=== PATIENT | female | born 1935 | race Caucasian/White ===

== ENCOUNTER 2017-09-04 13:03 | Inpatient (IN) | payer OTHER ==
[~2017-09-04] VITALS: Ht 160 cm; Wt 75.2 kg
[~2017-09-04 13:03] MED LIST: FELO10TA PO; GAB400C PO; GLIP-115 PO; LEV500T PO; LEVO25TA6 PO; LIS5T PO; LOVA20TA4 PO; METF-490 PO; NOR10T PO; SOTA80TA PO
[2017-09-04] MEDS ORDERED: HYDROcodone-ACET 10/325MG TAB PO ONE (15:15)
[2017-09-04 15:25] LABS: Basophils # (auto) 0.2 uL; Eosinophils # (auto) 0 uL; Eosinophils % (auto) 0.1 % (0.0-7.0); Hematocrit 27.1 % (36.0-46.0); Hemoglobin 8.8 g/dL (12.2-16.2); Lymphocytes # (auto) 2.3 uL; Lymphocytes % (auto) 12.4 % (10.0-50.0); Mean Corpuscular Hemoglobin 26.4 pg (28.0-32.0); Mean Corpuscular Hgb Conc. 32.5 g/dL (32.0-36.0); Mean Corpuscular Volume 81.5 fL (80.0-100.0); Monocytes # (auto) 1.2 uL; Monocytes % (auto) 6.6 % (0.0-12.0); Neutrophils % (auto) 79.9 % (37.0-80.0); Platelet Count (auto) 319 10^3/uL (140-450); Red Blood Cells 3.32 10^6/uL (4.0-5.20); Red Cell Distribution Width 15.8 % (11.8-14.3); White Blood Cell 18.8 10^3/uL (4.4-10.8)
[2017-09-04 15:26] LABS: Alanine Aminotransferase 15 U/L (13-56); Albumin 3.2 g/dL (3.4-5.0); Alkaline Phosphatase 86 U/L (45-117); Anion Gap 18 (5-15); Aspartate Aminotransferase 9 U/L (15-37); BUN/Creatinine Ratio 55.6; Bilirubin, Total 0.3 mg/dL (0.2-1.0); Blood Urea Nitrogen 65 mg/dL (7-18); Calcium 8.6 mg/dL (8.5-10.1); Carbon Dioxide 17 mmol/L (21-32); Chloride 92 mmol/L (98-107); GFR African American 57 mL/min; GFR Non-African American 47 mL/min; Glucose 202 mg/dL (74-106); Magnesium 1.7 mg/dL (1.6-2.6); Potassium 4.5 mmol/L (3.5-5.1); Sodium 127 mmol/L (136-145); Total Protein 6.6 g/dL (6.4-8.2)
[2017-09-04 16:07] LABS: Urine Bacteria FEW /hpf (None Seen); Urine Blood TRACE /uL (Negative); Urine Mucus FEW (None Seen); Urine Specific Gravity 1.013 (1.001-1.035); Urine WBC 4 /hpf (0 - 5)
[2017-09-04] MEDS ORDERED: cefTRIAXone 1GM/10ml IVPUSH 10 ML IV ONE (16:30)
[2017-09-04] MEDS ORDERED: InsuLIN REG 1unit/0.01ml Soln (100units/ml) SC ONE (16:30)
[2017-09-04] MEDS ORDERED: NALOXONE HCL 0.4 MG/ML VIAL ONE (16:48)
[2017-09-04] MEDS ORDERED: SODIUM CHLORIDE 0.9% 1,000 ML IV SCH ×3 (17:01→23:01)
[2017-09-04] MEDS ORDERED: NALOXONE HCL 0.4 MG/ML VIAL IV ONE (17:15)
[2017-09-04] MEDS ORDERED: SODIUM BICARBONATE 8.4 % INJ 50ML VIAL IV ONE (17:15)
[2017-09-04] MEDS ORDERED: InsuLIN R (HUMAN) 100 UNITS in SODIUM CHL 0.9% 99 ML IV SCH (17:15)
[2017-09-04] MEDS ORDERED: DEXTROSE (50%) 50ML SYRG IV PRN ×2 (17:15→17:45)
[2017-09-04] MEDS ORDERED: PANTOPRAZOLE 80 MG in SODIUM CHL 0.9% 60 ML IV ONE ×2 (17:30→17:45)
[2017-09-04] MEDS ORDERED: ACETAMINOPHEN 325 MG TAB PO PRN (17:45)
[2017-09-04] MEDS ORDERED: ALUM & MAG HYDROX-SIMETH LIQ(MAALOX) 30 ML PO PRN (17:45)
[2017-09-04] MEDS ORDERED: MORPHINE SULFATE 4 MG/ML SYR/VIAL IV PRN (17:45)
[2017-09-04] MEDS ORDERED: NITROGLYCERIN 0.4 MG SL TAB SL PRN (17:45)
[2017-09-04] MEDS ORDERED: LORazepam 0.5 MG TAB PO PRN (17:45)
[2017-09-04] MEDS ORDERED: ONDANSETRON HCL 4 MG/2 ML VIAL IV PRN (17:45)
[2017-09-04 17:47] LABS: Basophils # (auto) 0.1 uL; Basophils % (auto) 0.4 % (0.0-2.0); Eosinophils # (auto) 0 uL; Eosinophils % (auto) 0.1 % (0.0-7.0); Hematocrit 22.9 % (36.0-46.0); Hemoglobin 7.3 g/dL (12.2-16.2); Lymphocytes # (auto) 3.2 uL; Lymphocytes % (auto) 19.4 % (10.0-50.0); Mean Corpuscular Hemoglobin 26.1 pg (28.0-32.0); Mean Corpuscular Hgb Conc. 31.8 g/dL (32.0-36.0); Mean Corpuscular Volume 82.2 fL (80.0-100.0); Monocytes # (auto) 1.4 uL; Monocytes % (auto) 8.7 % (0.0-12.0); Neutrophils # (auto) 11.8 uL; Neutrophils % (auto) 71.4 % (37.0-80.0); Platelet Count (auto) 257 10^3/uL (140-450); Red Blood Cells 2.79 10^6/uL (4.0-5.20); Red Cell Distribution Width 15.7 % (11.8-14.3); White Blood Cell 16.5 10^3/uL (4.4-10.8)
[2017-09-04] MEDS: SODIUM CHLORIDE 0.9% 1,000 ML IV SCH (17:52)
[2017-09-04 18:00] LABS: Magnesium 1.7 mg/dL (1.6-2.6); Phosphorus 3.6 mg/dL (2.5-4.90); Potassium 4.5 mmol/L (3.5-5.1)
[2017-09-04] MEDS ORDERED: ACCU-CHEK COMFORT CURVE STRIP VI SCH (18:00)
[2017-09-04] MEDS ORDERED: NALBUPHINE HCL 10 MG/1ml INJECTION ONE (19:15)
[2017-09-04] MEDS ORDERED: IDARUCIZUMAB 2.5 GM/50 ML VIAL IV ONE ×2 (19:15→19:30)
[2017-09-04] MEDS ORDERED: NALBUPHINE HCL 10 MG/1ml INJECTION IV ONE (19:15)
[2017-09-04] MEDS ORDERED: MIDAZOLAM HCL 1MG/1ML-2 ML VIAL ONE (19:25)
[2017-09-04] MEDS: ACCU-CHEK COMFORT CURVE STRIP VI SCH (19:30)
[2017-09-04] MEDS: InsuLIN REG 1unit/0.01ml Soln (100units/ml) SC SCH (19:34)
[2017-09-04] MEDS ORDERED: MIDAZOLAM HCL 1MG/1ML-2 ML VIAL IV ONE (19:45)
[2017-09-04 21:15] LABS: Hematocrit 17.5 % (36.0-46.0)
[2017-09-04 21:23] LABS: Hemoglobin 5.6 g/dL (12.2-16.2)
[2017-09-04 21:27] LABS: INR 1.14 (0.9-1.15); Prothrombin Time 12.4 sec (9.37-12.3)
[2017-09-04 21:34] LABS: Lactic Acid w/Reflex 4.2 mmol/L (0.4-2.0)
[2017-09-04] MEDS: PIPERACILLIN-TAZOB 3.375GM 50 ML IV SCH (22:00)
[2017-09-04 23:14] VITALS: BP 87/48
[2017-09-04 23:28] VITALS: BP 90/38
[2017-09-05] VITALS (19 sets, daily range): BP systolic 70–134; BP diastolic 42–80
[2017-09-05] MEDS: SODIUM CHLORIDE 0.9% 1,000 ML IV SCH ×3 (03:45→23:45)
[2017-09-05 05:25] LABS: Hematocrit 29.2 % (36.0-46.0); Hemoglobin 9.8 g/dL (12.2-16.2)
[2017-09-05 05:34] LABS: BUN/Creatinine Ratio 80.9; Calcium 8.2 mg/dL (8.5-10.1); Potassium 3.9 mmol/L (3.5-5.1)
[2017-09-05] MEDS: InsuLIN REG 1unit/0.01ml Soln (100units/ml) SC SCH ×4 (06:00→18:06)
[2017-09-05] MEDS: PIPERACILLIN-TAZOB 3.375GM 50 ML IV SCH ×3 (06:09→22:07)
[2017-09-05] MEDS: ACCU-CHEK COMFORT CURVE STRIP VI SCH ×4 (06:09→18:06)
[2017-09-05] MEDS ORDERED: FLUMAZENIL 0.1 MG/ML INJ 10ML MDV IV ONE (09:26)
[2017-09-05] MEDS ORDERED: NALOXONE HCL 0.4 MG/ML VIAL ONE (09:26)
[2017-09-05] MEDS ORDERED: fentaNYL CITRATE 100 MCG/2 ML VL ONE (09:27)
[2017-09-05] MEDS ORDERED: MIDAZOLAM HCL 5 MG/ML-1ML VIAL ONE (09:27)
[2017-09-05] MEDS ORDERED: SODIUM CHLORIDE LOCK 10 ML ONE (09:27)
[2017-09-05] MEDS ORDERED: NOREPINEPHRINE 8 MG/250ML KIT 250 ML IV ONE (10:10)
[2017-09-05] MEDS: NOREPINEPHRINE 8 MG/250ML KIT 250 ML IV SCH (10:24)
[2017-09-05] MEDS ORDERED: METOCLOPRAMIDE HCL 5MG/ml INJ 2ml VIAL IV ONE (10:45)
[2017-09-05] MEDS: PANTOPRAZOLE 80 MG in SODIUM CHL 0.9% 60 ML IV SCH ×2 (11:54→21:15)
[2017-09-05] MEDS ORDERED: LIDOCAINE VISCOUS 2% 15ML UD ONE (12:04)
[2017-09-05] MEDS ORDERED: FUROSEMIDE 20 MG/2 ML VIAL IV ONE (12:15)
[2017-09-05] MEDS: MORPHINE SULFATE 4 MG/ML SYR/VIAL IV PRN ×2 (13:22→17:56)
[2017-09-05 13:40] LABS: Hematocrit 35.8 % (36.0-46.0); Hemoglobin 11.7 g/dL (12.2-16.2); Mean Corpuscular Hemoglobin 28.8 pg (28.0-32.0); Mean Corpuscular Hgb Conc. 32.7 g/dL (32.0-36.0); Mean Corpuscular Volume 88.2 fL (80.0-100.0); Platelet Count (auto) 190 10^3/uL (140-450); Red Blood Cells 4.06 10^6/uL (4.0-5.20); Red Cell Distribution Width 14.9 % (11.8-14.3); White Blood Cell 26.8 10^3/uL (4.4-10.8)
[2017-09-05 13:42] LABS: Band Neutrophils % (manual) 0; Basophils % (manual) 0 (0.0-2.0); Blast Cells 0; Eosinophils % (manual) 0 (0-7); Metamyelocytes % 0; Myelocytes % 0; Promyelocytes % 0; Reactive Lymphocytes 0
[2017-09-05 15:12] LABS: Lymphocytes % (manual) 3 (10.0-50.0); Monocytes % (manual) 13 (0-12)
[2017-09-05 19:09] LABS: Hematocrit 26.3 % (36.0-46.0); Hemoglobin 8.8 g/dL (12.2-16.2)
[2017-09-05 23:33] LABS: Hemoglobin 8.6 g/dL (12.2-16.2)
[2017-09-06] VITALS (92 sets, daily range): BP systolic 71–147; BP diastolic 28–93
[2017-09-06] MEDS: ACCU-CHEK COMFORT CURVE STRIP VI SCH ×5 (00:16→23:35)
[2017-09-06] MEDS: InsuLIN REG 1unit/0.01ml Soln (100units/ml) SC SCH ×5 (00:17→23:35)
[2017-09-06 03:58] LABS: Basophils # (auto) 0 uL; Basophils % (auto) 0.2 % (0.0-2.0); Hemoglobin 8.4 g/dL (12.2-16.2); Neutrophils % (auto) 86.1 % (37.0-80.0)
[2017-09-06 04:01] LABS: Eosinophils # (auto) 0.1 uL; Eosinophils % (auto) 0.9 % (0.0-7.0); Hematocrit 24.7 % (36.0-46.0); Lymphocytes # (auto) 0.8 uL; Lymphocytes % (auto) 5.1 % (10.0-50.0); Mean Corpuscular Hemoglobin 29.3 pg (28.0-32.0); Mean Corpuscular Hgb Conc. 33.9 g/dL (32.0-36.0); Mean Corpuscular Volume 86.4 fL (80.0-100.0); Monocytes # (auto) 1.2 uL; Monocytes % (auto) 7.7 % (0.0-12.0); Neutrophils # (auto) 13.4 uL; Nucleated Red Blood Cells % 0.2 %; Platelet Count (auto) 160 10^3/uL (140-450); Red Blood Cells 2.86 10^6/uL (4.0-5.20); Red Cell Distribution Width 15.2 % (11.8-14.3); White Blood Cell 15.6 10^3/uL (4.4-10.8)
[2017-09-06 04:11] LABS: BUN/Creatinine Ratio 53.9
[2017-09-06] MEDS: PIPERACILLIN-TAZOB 3.375GM 50 ML IV SCH ×3 (06:00→21:41)
[2017-09-06] MEDS ORDERED: FUROSEMIDE 20 MG/2 ML VIAL IV ONE (08:45)
[2017-09-06] MEDS: PANTOPRAZOLE 80 MG in SODIUM CHL 0.9% 60 ML IV SCH ×2 (09:27→18:44)
[2017-09-06] MEDS: MORPHINE SULFATE 4 MG/ML SYR/VIAL IV PRN ×4 (09:28→23:39)
[2017-09-06] MEDS: SODIUM CHLORIDE 0.9% 1,000 ML IV SCH ×2 (09:45→19:45)
[2017-09-06] MEDS: NOREPINEPHRINE 8 MG/250ML KIT 250 ML IV SCH (10:15)
[2017-09-06] MEDS: METOPROLOL TARTRATE 1MG/1ML-5ML VIAL IV PRN (12:34)
[2017-09-06 19:49] LABS: Hematocrit 31.3 % (36.0-46.0); Hemoglobin 10.8 g/dL (12.2-16.2)
[2017-09-06 20:51] LABS: INR 1.15 (0.9-1.15); Partial Thromboplastin Time 23.7 sec (22.64-33.71); Prothrombin Time 12.6 sec (9.37-12.3)
[2017-09-06] MEDS: SOTALOL HCL 80 MG TAB PO SCH (21:42)
[2017-09-07] VITALS (44 sets, daily range): BP systolic 93–173; BP diastolic 47–104
[2017-09-07 00:22] LABS: Hematocrit 29.8 % (36.0-46.0); Hemoglobin 10.3 g/dL (12.2-16.2)
[2017-09-07] MEDS: MORPHINE SULFATE 4 MG/ML SYR/VIAL IV PRN ×3 (03:53→11:49)
[2017-09-07 03:56] LABS: Basophils # (auto) 0 uL; Basophils % (auto) 0.3 % (0.0-2.0); Eosinophils # (auto) 0.4 uL; Eosinophils % (auto) 3.2 % (0.0-7.0); Hematocrit 29.9 % (36.0-46.0); Hemoglobin 10.4 g/dL (12.2-16.2); Lymphocytes # (auto) 0.7 uL; Lymphocytes % (auto) 5.4 % (10.0-50.0); Mean Corpuscular Hemoglobin 30.5 pg (28.0-32.0); Mean Corpuscular Hgb Conc. 34.9 g/dL (32.0-36.0); Mean Corpuscular Volume 87.4 fL (80.0-100.0); Monocytes # (auto) 1.2 uL; Monocytes % (auto) 9.6 % (0.0-12.0); Neutrophils # (auto) 10.3 uL; Neutrophils % (auto) 81.5 % (37.0-80.0); Nucleated Red Blood Cells % 0.1 %; Platelet Count (auto) 143 10^3/uL (140-450); Red Blood Cells 3.42 10^6/uL (4.0-5.20); Red Cell Distribution Width 14.9 % (11.8-14.3); White Blood Cell 12.7 10^3/uL (4.4-10.8)
[2017-09-07] MEDS: PANTOPRAZOLE 80 MG in SODIUM CHL 0.9% 60 ML IV SCH (04:04)
[2017-09-07 04:16] LABS: BUN/Creatinine Ratio 38.6; Calcium 8.3 mg/dL (8.5-10.1); Potassium 3.5 mmol/L (3.5-5.1)
[2017-09-07] MEDS: InsuLIN REG 1unit/0.01ml Soln (100units/ml) SC SCH ×2 (05:43→11:45)
[2017-09-07] MEDS: ACCU-CHEK COMFORT CURVE STRIP VI SCH ×2 (05:43→11:45)
[2017-09-07] MEDS: PIPERACILLIN-TAZOB 3.375GM 50 ML IV SCH ×2 (05:43→15:00)
[2017-09-07] MEDS: METOPROLOL TARTRATE 1MG/1ML-5ML VIAL IV PRN (06:01)
[2017-09-07] MEDS ORDERED: LIDOCAINE VISCOUS 2% 15ML UD ONE (08:10)
[2017-09-07] MEDS ORDERED: fentaNYL CITRATE 100 MCG/2 ML VL ONE (08:11)
[2017-09-07] MEDS ORDERED: diphenhdrAMINE HCL 50 MG/1 ML VL ONE (08:11)
[2017-09-07] MEDS ORDERED: MIDAZOLAM HCL 5 MG/ML-1ML VIAL ONE (08:11)
[2017-09-07] MEDS: SOTALOL HCL 80 MG TAB PO SCH (10:00)
[2017-09-07] MEDS ORDERED: EPINEPHrine HCL 1 MG/10 ML SYRG ONE (11:03)
[2017-09-07] MEDS ORDERED: SODIUM CHLORIDE LOCK 10 ML ONE (12:15)
[2017-09-07] MEDS ORDERED: MIDAZOLAM HCL 5 MG/ML-1ML VIAL IV ONE ×2 (14:19→14:25)
[2017-09-07] MEDS ORDERED: fentaNYL CITRATE 100 MCG/2 ML VL IV ONE ×2 (14:19→14:25)
[2017-09-07] MEDS: SODIUM CHLORIDE 0.9% 1,000 ML IV SCH (15:00)
[2017-09-07] MEDS ORDERED: LORazepam 2MG/ML-1ML VIAL IV PRN (16:30)
[2017-09-07] MEDS ORDERED: MORPHINE SULFATE 4 MG/ML SYR/VIAL IV PRN (16:30)
[2017-09-07 16:56] LABS: Hematocrit 29.2 % (36.0-46.0); Hemoglobin 9.9 g/dL (12.2-16.2)
[2017-09-07] MEDS ORDERED: PANTOPRAZOLE 40 MG TAB PO SCH (22:00)
== END 2017-09-07 18:00 | disposition expired | DRG 871 ==
LOC: ER 13:03 → EDBD 13:03 → TELE 13:04 → ICU WEST 09-05 22:38 → TELE-EAST 09-07 16:07 → ICU WEST 09-07 16:45
PROVIDERS: ADMIT Family Medicine; ATTEND Family Medicine
PROC: 30233N1 Transfusion of Nonautologous Red Blood Cells into Peripheral Vein, Percutaneous Approach (ICD-10-PCS; 2017-09-04)
PROC: 02HV33Z Insertion of Infusion Device into Superior Vena Cava, Percutaneous Approach (ICD-10-PCS; 2017-09-04)
PROC: 30233K1 Transfusion of Nonautologous Frozen Plasma into Peripheral Vein, Percutaneous Approach (ICD-10-PCS; 2017-09-05)
PROC: 30233L1 Transfusion of Nonautologous Fresh Plasma into Peripheral Vein, Percutaneous Approach (ICD-10-PCS; 2017-09-05)
PROC: 0D9670Z Drainage of Stomach with Drainage Device, Via Natural or Artificial Opening (ICD-10-PCS; 2017-09-05)
PROC: 0DC68ZZ Extirpation of Matter from Stomach, Via Natural or Artificial Opening Endoscopic (ICD-10-PCS; 2017-09-05)
PROC: 0W3P8ZZ Control Bleeding in Gastrointestinal Tract, Via Natural or Artificial Opening Endoscopic (ICD-10-PCS; principal; 2017-09-07 13:15)
DX: A41.9 Sepsis, unspecified organism (principal); K31.82 Dieulafoy lesion (hemorrhagic) of stomach and duodenum; R57.1 Hypovolemic shock; G93.41 Metabolic encephalopathy; N17.9 Acute kidney failure, unspecified; I74.3 Embolism and thrombosis of arteries of the lower extremities; E87.2 Acidosis; D62 Acute posthemorrhagic anemia; N39.0 Urinary tract infection, site not specified; E11.65 Type 2 diabetes mellitus with hyperglycemia; I48.91 Unspecified atrial fibrillation; E03.9 Hypothyroidism, unspecified; I46.9 Cardiac arrest, cause unspecified; E78.5 Hyperlipidemia, unspecified; Z51.5 Encounter for palliative care; G89.29 Other chronic pain; M54.9 Dorsalgia, unspecified; Z66 Do not resuscitate; Z79.01 Long term (current) use of anticoagulants; I11.9 Hypertensive heart disease without heart failure; Z82.3 Family history of stroke; Z82.49 Family history of ischemic heart disease and other diseases of the circulatory system; Z83.3 Family history of diabetes mellitus; Z90.710 Acquired absence of both cervix and uterus; Z79.899 Other long term (current) drug therapy
CPT/HCPCS: 36415; 36430; 36556; 43247; 43255; 51702; 70450; 71045; 74176; 76937; 80048; 80053; 81001; 82010; 82962; 83605; 83735; 84100; 84484; 85007; 85014; 85018; 85025; 85027; 85379; 85610; 85730; 86850; 86900; 86901; 86920; 87040; 87081; 87086; 93005; 93306; 93970; 96365; 96372; 96375; C9113; J1815; J2250; J2405; J2543